=== PATIENT | female | born 1935 | race Native Hawaiian/Other Pacific Islander ===

== ENCOUNTER 2016-11-22 10:34 | Outpatient (CLI) | payer OTHER | END 2016-11-22 11:34 | disposition home or self-care (01) | LOC: RAD 10:34 | DX: J44.9 Chronic obstructive pulmonary disease, unspecified (principal) ==

== ENCOUNTER 2021-09-11 12:22 | Inpatient (IN) | payer OTHER ==
[~2021-09-11] VITALS: Ht 167.6 cm; Wt 76.2 kg
[2021-09-11 12:30] VITALS: BP 174/73; TEMP 98
[2021-09-11 13:00] VITALS: BP 164/57
[2021-09-11 13:04] LABS: PLATELET COUNT 272 K/uL (152-353)
[2021-09-11 13:21] LABS: POTASSIUM 4.1 mmol/L (3.6-5.2)
[2021-09-11 13:30] VITALS: BP 154/52
[2021-09-11 14:00] VITALS: BP 126/52
[2021-09-11 14:25] LABS: PARTIAL THROMBOPLASTIN TIME 27.3 SECONDS (24.5-33.6)
[2021-09-11 16:15] VITALS: BP 154/69; TEMP 98.5; Ht 167.6 cm; Wt 76.2 kg
[2021-09-12] VITALS: BP 157/73; TEMP 97.9
[2021-09-12 04:00] VITALS: BP 178/80; TEMP 97.9
[2021-09-12 05:43] LABS: PLATELET COUNT 254 K/uL (152-353)
[2021-09-12 06:06] LABS: POTASSIUM 4.3 mmol/L (3.6-5.2)
[2021-09-12 08:00] VITALS: BP 184/65; TEMP 97.7
[2021-09-12 12:00] VITALS: BP 186/65; TEMP 97.7
[2021-09-12 16:00] VITALS: BP 166/51; TEMP 97.8
[2021-09-12 20:00] VITALS: BP 199/89; TEMP 98.9
[2021-09-13] VITALS: BP 186/76; TEMP 98.7
[2021-09-13 04:00] VITALS: BP 147/54; TEMP 98.1
[2021-09-13 04:48] LABS: PLATELET COUNT 296 K/uL (152-353)
[2021-09-13 08:00] VITALS: BP 177/67; TEMP 97.9
[2021-09-13 12:00] VITALS: BP 166/44; TEMP 97.9
[2021-09-13 16:00] VITALS: BP 111/44; TEMP 97.7
[2021-09-13 20:00] VITALS: BP 154/71; TEMP 98.9
[2021-09-14] VITALS: BP 157/32; TEMP 98.3
[2021-09-14 04:00] VITALS: BP 183/70; TEMP 98
[2021-09-14 04:47] LABS: PLATELET COUNT 263 K/uL (152-353)
[2021-09-14 04:55] LABS: POTASSIUM 4.3 mmol/L (3.6-5.2)
[2021-09-14 08:00] VITALS: BP 128/620; TEMP 97.6
[2021-09-14 12:00] VITALS: BP 134/63; TEMP 97.8
[2021-09-14] MEDS ORDERED: ALBUTEROL108 MCG/AC INH (14:22)
[2021-09-14] MEDS ORDERED: TRELEGY ELLIPTA1 AER INH (14:23)
[2021-09-14] MEDS ORDERED: AMLODIPINE BESYLATE PO (14:26)
[2021-09-14] MEDS ORDERED: ASCO500T18 PO (14:26)
[2021-09-14] MEDS ORDERED: METO50TA27 PO (14:27)
[2021-09-14] MEDS ORDERED: ZINC220C4 PO (14:27)
[2021-09-14] MEDS ORDERED: BLOOMIS59 PO (14:28)
[2021-09-14] MEDS ORDERED: VITAMIN D1000 UNIT PO (14:29)
[2021-09-14] MEDS ORDERED: PRED10TA27 PO (14:32)
[2021-09-14] MEDS ORDERED: DOCU100C10 PO (17:30)
[2021-09-14] MEDS ORDERED: FERROUS SULF325 M1 PO (17:30)
[2021-09-14] MEDS ORDERED: VITAMIN B-121000 MC2 PO (17:30)
== END 2021-09-14 14:30 | disposition home or self-care (01) | DRG 177 ==
LOC: ED 12:22 → MED/SURG 13:45
PROVIDERS: Hospitalist; ADMIT Internal Medicine Endocrinology, Diabetes & Metabolism; ATTEND Internal Medicine Endocrinology, Diabetes & Metabolism
DX: U07.1 COVID-19 (principal); J96.21 Acute and chronic respiratory failure with hypoxia; J44.1 Chronic obstructive pulmonary disease with (acute) exacerbation; I10 Essential (primary) hypertension; Z99.81 Dependence on supplemental oxygen; D63.8 Anemia in other chronic diseases classified elsewhere
CPT/HCPCS: 36415; 36600; 80053; 82550; 82607; 82728; 82746; 82805; 83540; 83880; 84484; 85027; 85610; 85730; 87635; 93005; 94760; 96374; 99284; J0360; J0456; J0696; J1100; J1650; J3490; U0003

== ENCOUNTER 2021-09-20 09:49 | Emergency (ER) | payer OTHER ==
[~2021-09-20] VITALS: Ht 167.6 cm; Wt 76.2 kg
[~2021-09-20 09:49] MED LIST: ALBUTEROL108 MCG/AC INH; AMLODIPINE BESYLATE PO; ASCO500T18 PO; BLOOMIS59 PO; DOCU100C10 PO; FERROUS SULF325 M1 PO; METO50TA27 PO; PRED10TA27 PO; TRELEGY ELLIPTA1 AER INH; VITAMIN B-121000 MC2 PO; VITAMIN D1000 UNIT PO; ZINC220C4 PO
[2021-09-20 11:42] LABS: POTASSIUM 6.7 mmol/L (3.6-5.2)
== END 2021-09-20 11:30 | disposition expired ==
LOC: ED 09:49
PROVIDERS: Emergency Medicine
PROC: 5A1221J Performance of Cardiac Output, Continuous, Automated (ICD-10-PCS; principal; 2021-09-20)
PROC: 0BH17EZ Insertion of Endotracheal Airway into Trachea, Via Natural or Artificial Opening (ICD-10-PCS; 2021-09-20)
DX: I46.9 Cardiac arrest, cause unspecified (principal); U07.1 COVID-19
CPT/HCPCS: 80048; 84484; 87635; 92950; 96360; 96375; 99285; J0171; U0003